=== PATIENT | female | born 2000 ===

== ENCOUNTER 2023-10-28 13:30 | Emergency (ER) | payer MEDICAID ==
[~2023-10-28] VITALS: Ht 172.7 cm; Wt 86.0 kg
[2023-10-28 13:42] VITALS: TEMP 98.4; O2SAT 100
[2023-10-28] MEDS ORDERED: IBUP-2028 MT (15:38)
[2023-10-28 16:01] VITALS: BP 115/74; PULSE 75; RESP 16
== END 2023-10-28 16:03 | disposition home or self-care (01) ==
LOC: ER 14:10
DX: M79.89 Other specified soft tissue disorders (principal)
CPT/HCPCS: 73560; 81025; 99283